=== PATIENT | female | born 1955 | race Caucasian/White ===

== ENCOUNTER 2021-05-13 11:19 | Emergency (ER) | payer OTHER ==
[~2021-05-13 11:19] MED LIST: AMIODARONE HCL200 MG PO; ASPIRIN CHEWABL81 MG PO; ATENOLOL25 MG PO; CEFDINIR300 MG PO; CERTAGEN1 EACH PO; COUMADIN2.5 MG PO; DIGITEK125 MCG PO; FEOSOL325 MG PO; FIBERCON1 EACH PO; GABAPENTIN100 MG PO; LEVOTHYROXINE50 MCG PO; NEURONTIN100 MG PO; OMEPRAZOLE40 MG PO; PERCOCET 5/3251 TAB PO; PROBIOTIC1 EAC1 PO; PROZAC20 MG PO; RYTHMOL SR325 MG PO; WARFARIN SODIUM5 MG PO; WELLBUTRIN XL150 MG PO; ZOCOR5 MG PO; ZOVIRAX800 MG PO
[2021-05-13 13:10] LABS: BASOPHIL 0.9 % (0-2); HCT 47.7 % (37.0-47.0); HGB 15.6 g/dl (12.5-16.0); LYMPHOCYTE 22.7 % (15-48); MCH 29.6 pg (25.0-31.0); MCHC 32.7 g/dL (32.0-36.0); MCV 90.5 fL (78.0-100.0); MONOCYTE 12.6 % (0-12); MPV 10.8 fL (6.0-9.5); NEUTROPHIL 62.5 % (41-80); NRBC 0; PLT 230 K/uL (150-400); RBC 5.27 M/uL (4.20-5.40); RDW 13.2 % (11.5-14.0); WBC 9.2 K/uL (4.0-10.5)
[2021-05-13 13:57] LABS: BILIRUBIN NEGATIVE (NEGATIVE); BLOOD 2+ Ery/uL (NEGATIVE); CLARITY CLEAR (CLEAR); COLOR YELLOW (YELLOW); GLUCOSE (U) NORMAL (NORMAL); LEUKOCYTES 1+ Leu/uL (NEGATIVE); NITRITE NEGATIVE (NEGATIVE); PROTEIN TRACE (LOW) mg/dL (NEGATIVE); SPECIFIC GRAVITY 1.025 (1.001-1.030); UROBILINOGEN 0.2 mg/dL (0.2-1.0)
[2021-05-13 14:18] LABS: BUN/CREAT RATIO (CALC) 14.6 RATIO; CREATININE 1.03 mg/dL (0.51-0.95); POTASSIUM 4.1 mmol/L (3.5-5.1)
[2021-05-13 14:31] LABS: INFLUENZA A NAA NEGATIVE (NEGATIVE)
[2021-05-13 14:34] LABS: BACTERIA 1+; MUCOUS MODERATE
[2021-05-13 14:39] LABS: CORONAVIRUS 2019 SARS-COV-2 POSITIVE (NEGATIVE)
[2021-05-13] MEDS ORDERED: MUCINEX DM ER1 EACH PO (16:00)
[2021-05-13] MEDS ORDERED: ONDANSETRON ODT4 MG PO (16:00)
== END 2021-05-13 16:50 | disposition home or self-care (01) ==
LOC: FER 11:19
PROVIDERS: Internal Medicine
DX: U07.1 COVID-19 (principal); N17.9 Acute kidney failure, unspecified; I48.91 Unspecified atrial fibrillation; E78.5 Hyperlipidemia, unspecified; Z79.01 Long term (current) use of anticoagulants; Z79.899 Other long term (current) drug therapy
CPT/HCPCS: 36415; 71045; 80048; 81001; 83690; 84145; 85025; J7030; U0002